=== PATIENT | male | born 1940 | race Caucasian/White ===

== ENCOUNTER 2016-03-25 07:52 | Day surgery (SDC) | payer MEDICARE, BC ==
[~2016-03-25] VITALS: Ht 177.8 cm; Wt 72.5 kg
[~2016-03-25 07:52] MED LIST: ALPR-138 PO; AMIO200 PO; ASPI81 PO; CLOP75 PO; FISH1000 PO; FLUO20SO3 PO; LORTA5 PO; METO25 PO; NIAC250C6 PO; RANI150T PO; TAB-TAB PO; [UNRECOGNIZED DRUG - CODE] NASAL
[2016-03-25 08:08] VITALS: BP 129/88; PULSE 81; RESP 20; TEMP 98.4; O2SAT 99
[2016-03-25] MEDS ORDERED: FLUO40CA PO (08:51)
[2016-03-25] MEDS ORDERED: ASPI81CH CHEW (08:51)
[2016-03-25] MEDS ORDERED: ZANT150T2 PO (08:51)
[2016-03-25] MEDS ORDERED: ALPR.25 PO (08:51)
[2016-03-25] MEDS ORDERED: MULT1TAB84 PO (08:51)
[2016-03-25 09:00] LABS: AUTOMATED NEUTROPHIL # 2.7 TH/MM3 (1.8-7.7); BASOPHIL # 0.1 TH/MM3 (0-0.2); BASOPHIL % 1.3 % (0.0-2.0); EOSINOPHIL # 0.3 TH/MM3 (0-0.4); EOSINOPHIL % 6.1 % (0.0-4.0); HEMATOCRIT 37.9 % (39.0-51.0); HEMO FLAGS DIFF FINAL; LYMPH % 22.6 % (9.0-44.0); LYMPHOCYTE # 1.1 TH/MM3 (1.0-4.8); MEAN CELL VOLUME 92.6 FL (80.0-100.0); MEAN CORPUSCULAR HEMOGLOBIN 31.8 PG (27.0-34.0); MEAN CORPUSCULAR HGB CONC 34.4 % (32.0-36.0); MONO % 16.5 % (0.0-8.0); NEUT % 53.5 % (16.0-70.0); PLATELET COUNT 193 TH/MM3 (150-450); RED BLOOD COUNT 4.09 MIL/MM3 (4.50-5.90)
[2016-03-25] MEDS ORDERED: SODIUM CHLOR 0.9% 1000 ML IV SCH (09:00)
[2016-03-25] MEDS ORDERED: Infusaport/Implanted VAD PRN NS Lock Flush IVF (09:00)
[2016-03-25 09:07] LABS: APTT (PATIENT) 27.3 SEC (24.3-30.1); PROTHROMBIN TIME - PATIENT 10.7 SEC (9.8-11.6)
[2016-03-25] MEDS ORDERED: MIDAZOLAM HCL 5 MG/5 ML VIAL ONE (09:48)
[2016-03-25] MEDS ORDERED: fentaNYL CITRATE 250 MCG/5 ML AMP ONE (09:48)
[2016-03-25 10:40] VITALS: BP 119/69; PULSE 85; RESP 20; TEMP 98.1; O2SAT 95
[2016-03-25 10:41] LABS: BONE MARROW PROCESSING COMPLETE; IRON STAIN DONE; JENNER GIEMSA STAIN DONE
[2016-03-25 10:55] VITALS: BP 115/72; PULSE 81; RESP 16; O2SAT 92
[2016-03-25 11:25] VITALS: BP 110/68; PULSE 80; RESP 16; O2SAT 96
[2016-03-25 11:55] VITALS: BP 121/72; PULSE 77; RESP 18; O2SAT 96
[2016-03-25 12:25] VITALS: BP 121/74; PULSE 76; RESP 18; O2SAT 95
--- NOTE | 2016-03-25 12:28 | RADRPT ---
EXAM DATE/TIME: 03/25/2016 10:00 [place] COMPARISON: No previous studies available for comparison. INDICATIONS : Non-Hodgkin's lymphoma. SEDATION TIME: 30 minutes BIOPSY SITE: Right MEDICATION(S): 1.) 3 mg midazolam (Versed) IV 2.) 150 mcg fentanyl (Sublimaze) IV DEVICE(S): 1.) 11 gauge Bone marrow biopsy needle MEDICAL HISTORY : Cardiovascular disease. Hypertension. SURGICAL HISTORY : None. ENCOUNTER: Initial ACUITY: 1 day PAIN SCORE: 0/10 LOCATION: Right pelvis A total of one core specimen(s) were obtained and sent to the laboratory for pathologic evaluation. PROCEDURE: 1. CT guided bone marrow biopsy. 2. Conscious sedation with continuous EKG and oximetry monitoring. 3. EKG and oximetry remained stable throughout the procedure. Prior to the procedure informed consent was obtained. Any appropriate prior imaging studies were rev iewed. The site was prepped in a sterile fashion. Full sterile technique was used, including cap, mask, geneva rile gloves and gown and a large sterile sheet. Hand hygiene and 2% chlorhexidine and/or betadine/al cohol prep was utilized per protocol for cutaneous antisepsis. The skin and subcutaneous tissues wer e infiltrated with local anesthetic solution. With CT guidance the previously identified target was localized. Biopsy was performed using the presc ribed needle as above. Following biopsy marrow aspiration was performed with repeat puncture. Adequa te hemostasis was obtained with compression at the puncture site. Follow-up CT scan reveals no hemorrhage. Conscious sedation was performed with the prescribed dosages and duration as above. The patient claire ated the procedure well and there were no complications. EKG and oximetry remained stable throughout the procedure. The patient was sent to Radiology Outpatient Unit in stable condition. CONCLUSION: 1. Uncomplicated CT guided bone marrow aspirate. 2. Uncomplicated CT guided bone marrow biopsy. Vazquez Pope MD FACR on March 25, 2016 at 12:26 Board Certified Radiologist. This report was verified electronically.
== END 2016-03-25 12:39 | disposition home or self-care (01) ==
LOC: HRAD 07:52 → HRIP 07:56 → EDSTATUS 08:00 → HRAD 12:39
PROVIDERS: ATTEND Internal Medicine Hematology & Oncology
DX: C82.10 Follicular lymphoma grade II, unspecified site (principal); I10 Essential (primary) hypertension; I25.10 Atherosclerotic heart disease of native coronary artery without angina pectoris
CPT/HCPCS: 38221; 77012; 85025; 85097; 85610; 85730; 88184; 88185; 88237; 88264; 88280; 88305; 88311; 88313; 99152; 99153; C1830; G0364; J1642; J2250; J3010; J7030